=== PATIENT | female | born 1940 | race Two or more races ===

== ENCOUNTER 2020-10-07 13:19 | Emergency (ER) | payer MEDICARE, MEDICAID ==
[~2020-10-07] VITALS: Ht 157.5 cm; Wt 57.0 kg
[~2020-10-07 13:19] MED LIST: ALEN70TA60 PO; ATOR40TA PO; BACDS PO; CARV-50 PO; GLYB-97 PO; LISI40TA13 PO; METF500T PO; VALS1TAB37 PO
[2020-10-07 13:29] VITALS: BP 138/75
[2020-10-07 14:17] LABS: BASOPHILS % (AUTO) 0.3 % (0-1); EOSINOPHILS # (AUTO) 0.1 X10'3 (0-0.9); EOSINOPHILS % (AUTO) 0.6 % (0-6); HEMATOCRIT 33.1 % (35.0-45.0); HEMOGLOBIN 11.4 g/dl (12.0-16.0); LYMPHOCYTES # (AUTO) 2.5 X10'3 (1.1-4.8); LYMPHOCYTES % (AUTO) 25.6 % (21-51); MEAN CORPUSCULAR HEMOGLOBIN 31.3 PG (27.0-31.0); MEAN CORPUSCULAR HGB CONC 34.3 g/dL (33.0-36.5); MEAN CORPUSCULAR VOLUME 91.4 FL (78-98); MEAN PLATELET VOLUME 10.5 FL (7.4-10.4); MONOCYTES # (AUTO) 0.6 X10'3 (0-0.9); MONOCYTES % (AUTO) 5.6 % (2-12); NEUTROPHILS # (AUTO) 6.8 X10'3 (1.8-7.7); NEUTROPHILS % (AUTO) 67.9 % (42-75); PLATELET COUNT 153 X10'3 (140-440); RED BLOOD COUNT 3.62 X10'6 (4.20-5.60); RED CELL DISTRIBUTION WIDTH 14.5 % (11.5-14.5)
[2020-10-07 14:34] LABS: ALANINE AMINOTRANSFERASE 709 U/L (12-78); ALBUMIN 2.9 G/DL (3.4-5.0); ALBUMIN/GLOBULIN RATIO 0.7 (1.1-1.5); ALKALINE PHOSPHATASE 410 IU/L (46-116); ANION GAP 12 (8-16); ASPARTATE AMINO TRANSFERASE 919 U/L (10-37); BILIRUBIN,TOTAL 2.7 MG/DL (0.1-1.0); BLOOD UREA NITROGEN 20 MG/DL (7-18); BUN/CREATININE RATIO 16.5 (6.6-38.0); CALCIUM 8.7 MG/DL (8.5-10.1); CHLORIDE 100 MMOL/L (99-107); CREATININE 1.21 MG/DL (0.40-0.90); GLUCOSE 331 MG/DL (70-104); LIPASE 161 U/L (73-393); MAGNESIUM 1.7 MG/DL (1.5-2.4); POTASSIUM 3.1 MMOL/L (3.5-5.1); SODIUM 137 MMOL/L (135-145); TOTAL CARBON DIOXIDE 25.1 MMOL/L (24-32); TOTAL PROTEIN 7.1 G/DL (6.4-8.2); eGFR 43 ML/MIN
[2020-10-07 14:57] LABS: ACANTHOCYTES FEW; BURR CELLS 1+; PLATELET ESTIMATE NORMAL; SCHISTOCYTES 1+
[2020-10-07 14:59] LABS: POIKILOCYTOSIS 1+
[2020-10-07 15:39] LABS: CLARITY,URINE CLOUDY (Clear); COLOR,URINE BROWN (Yellow); GLUCOSE, URINE >=1000 mg/dl (Neg); KETONES,URINE TRACE mg/dl (Neg); LEUKOCYTE ESTERASE ,URINE NEGATIVE (Neg); OCCULT BLOOD,URINE LARGE (Neg); PH,URINE 5.5 (4.8-8.0); PROTEIN,URINE >=300 mg/dl (Neg)
[2020-10-07 15:44] LABS: UA COLLECTION TYPE NON-SPECIFIED
[2020-10-07 15:45] LABS: NITRITES, URINE NEGATIVE (Neg)
[2020-10-07 15:48] LABS: CELLULAR CAST >30 /LPF (NEGATIVE)
[2020-10-07 15:49] LABS: WBC CLUMPS,URINE FEW /HPF (NEGATIVE)
[2020-10-07 15:50] LABS: BACTERIA,URINE 4+ /HPF (Neg); SQUAMOUS EPITHELIAL CELL,UR FEW /LPF (FEW); WBC,URINE 20-30 /HPF (0-4)
[2020-10-07 15:52] LABS: AMORPHOUS URATES 1+
[2020-10-07] MEDS ORDERED: CEPH-585 PO (15:59)
[2020-10-07] MEDS ORDERED: cephalexin 250mg capsule PO ONE (16:05)
== END 2020-10-07 16:14 | disposition home or self-care (01) ==
LOC: ER 13:19
DX: R74.8 Abnormal levels of other serum enzymes (principal); E80.6 Other disorders of bilirubin metabolism; N39.0 Urinary tract infection, site not specified; R31.9 Hematuria, unspecified; I10 Essential (primary) hypertension; E11.9 Type 2 diabetes mellitus without complications; Z90.710 Acquired absence of both cervix and uterus; Z95.0 Presence of cardiac pacemaker; Z79.2 Long term (current) use of antibiotics; Z79.899 Other long term (current) drug therapy
CPT/HCPCS: 36415; 80053; 81001; 83690; 83735; 85008; 85025; 86885; 86900; 86901; 87077; 87088; 87186; 99283

== ENCOUNTER 2021-12-28 06:38 | Day surgery (SDC) | payer MEDICARE, MEDICAID ==
[~2021-12-28] VITALS: Ht 147.3 cm; Wt 56.8 kg
[2021-12-28] VITALS (9 sets, daily range): BP systolic 106–160; BP diastolic 56–88
[2021-12-28] MEDS ORDERED: SACU1TAB7 SQ (06:58)
[2021-12-28] MEDS ORDERED: iohexol 300mg/ml 100ml inj. ONE ×2 (06:59)
[2021-12-28] MEDS ORDERED: fentaNYL/PF 50MCG/1 ML 2ML syringe ONE (06:59)
[2021-12-28] MEDS ORDERED: levoFLOXACIN-Levaquin 500mg/D5 100 ML IV ONE (07:00)
[2021-12-28] MEDS ORDERED: diphenhydrAMINE 50 mg/ml inj ONE (07:00)
[2021-12-28] MEDS ORDERED: AMLO5TAB PO (07:00)
[2021-12-28] MEDS ORDERED: LIDOcaine Viscous 15ml cup ONE (07:00)
[2021-12-28] MEDS ORDERED: MIDAZolam 1 MG/ML 5ML VIAL ONE (07:00)
[2021-12-28] MEDS ORDERED: POTA-82 PO (07:00)
[2021-12-28] MEDS ORDERED: CHOL20002 PO (07:01)
[2021-12-28] MEDS ORDERED: glucagon, human recombinant 1mg kit ONE ×2 (07:01)
[2021-12-28] MEDS ORDERED: ASPI-1265 PO (07:02)
== END 2021-12-28 09:56 | disposition home or self-care (01) ==
LOC: GI LAB 06:38
PROVIDERS: ATTEND Internal Medicine Gastroenterology
DX: Z46.59 Encounter for fitting and adjustment of other gastrointestinal appliance and device (principal); K83.1 Obstruction of bile duct; Z79.899 Other long term (current) drug therapy
CPT/HCPCS: 43261; 43276; 74328; 82948; 99153; C1726; C1769; C2625; G0500; J1610; J1956; J2250; J3010; J7030; Q9967; Z7512; Z7610; 43277; 88108; 88305; 99152; A4620; J1200

== ENCOUNTER 2024-05-12 09:25 | Day surgery (SDC) | payer MEDICARE, MEDICAID ==
[2024-05-12] VITALS (8 sets, daily range): BP systolic 111–196; BP diastolic 60–89; PULSE 57–68; RESP 13–17; TEMP 96.6; O2SAT 98–100
[~2024-05-12] VITALS: Ht 147.3 cm; Wt 59.1 kg
[~2024-05-12 09:25] MED LIST changes: -ALEN70TA60 PO; +AMI200T PO; +AMLO5TAB PO; +ASPI-1265 PO; +ATOR-2 PO; -ATOR40TA PO; -BACDS PO; -CARV-50 PO; +CARV6.253 PO; +CHOL20002 PO; -GLYB-97 PO; +INSU100I31 SQ; -LISI40TA13 PO; +METF-438 PO; -METF500T PO; +POTA-366 PO; +SACU1TAB7 PO; +SPIRONOLACTONE 12.5 MG PO; +URSO300C2 PO; -VALS1TAB37 PO; +glucagon, human recombinant 1mg kit ONE; +iohexol 300mg/ml 100ml inj. ONE; +levoFLOXACIN-Levaquin 500mg/D5 100 ML IV ONE
[2024-05-12] MEDS ORDERED: normal saline 1000ml 1,000 ML IV ONE (10:15)
[2024-05-12] MEDS ORDERED: simethicone 40mg/0.6ml oral drops 30ml PO ONE (10:15)
[2024-05-12] MEDS ORDERED: hydrALAZINE 20mg/ml inj. IV PRN (10:45)
[2024-05-12] MEDS ORDERED: proCHLORperazine 10 MG/2 ml inj IV PRN (10:45)
[2024-05-12] MEDS ORDERED: ringers solution, lacted 1,000 ML IV SCH (10:45)
[2024-05-12] MEDS ORDERED: morphine 2 MG/ML inj. syringe IV PRN (10:45)
[2024-05-12] MEDS ORDERED: meperidine/PF 25mg/ml syringe IV PRN ×2 (10:45)
[2024-05-12] MEDS ORDERED: labetalol 20mg/4ml (5mg/ml) syringe IV PRN (10:45)
[2024-05-12] MEDS ORDERED: ondansetron/PF 4mg/2ml inj IV PRN (10:45)
[2024-05-12] MEDS ORDERED: propofol inj 20 ML IV ONE ×3 (11:17)
== END 2024-05-12 12:30 | disposition home or self-care (01) ==
LOC: GI LAB 09:25
PROVIDERS: ATTEND Internal Medicine Gastroenterology
DX: K80.50 Calculus of bile duct without cholangitis or cholecystitis without obstruction (principal); I48.91 Unspecified atrial fibrillation; I10 Essential (primary) hypertension
CPT/HCPCS: 43264; 74328; 82948; A4618; A4620; C1769; J0780; J1610; J1956; J2175; J2405; J2704; J7030; J7120; Q9967; Z7506; Z7512; Z7610; J0360; J2270; J3490